=== PATIENT | male | born 1995 | race Caucasian/White ===

== ENCOUNTER → 2017-11-19 | Outpatient (CLI) | payer OTHER ==
[~2017-11-19] MED LIST: IOHEXOL 180 MG/ML 10 ML VIAL.; methylPREDNISolone ACETATE 40 MG/ML VIAL.; methylPREDNISolone ACETATE 80 MG/ML VIAL.
== END ==
LOC: PNCL 09:27
DX: M51.16 Intervertebral disc disorders with radiculopathy, lumbar region (principal); Z72.89 Other problems related to lifestyle; Z91.018 Allergy to other foods; Z90.49 Acquired absence of other specified parts of digestive tract; Z98.890 Other specified postprocedural states
CPT/HCPCS: 62323; J1030; J1040; Q9965

== ENCOUNTER → 2017-12-09 | Outpatient (CLI) | payer OTHER | END | disposition home or self-care (01) | LOC: PNCL 08:58 | DX: M51.16 Intervertebral disc disorders with radiculopathy, lumbar region (principal) | CPT/HCPCS: 99212 ==

== ENCOUNTER → 2017-12-23 | Outpatient (CLI) | payer OTHER ==
[~2017-12-23] MED LIST changes: +LIDOCAINE 1% PF 2 ML VIAL.
== END | disposition home or self-care (01) ==
LOC: PNCL 09:24
DX: M51.16 Intervertebral disc disorders with radiculopathy, lumbar region (principal); Z91.018 Allergy to other foods
CPT/HCPCS: 62323; J1030; J1040; Q9965

== ENCOUNTER → 2018-01-27 | Outpatient (CLI) | payer OTHER | END | disposition home or self-care (01) | LOC: PNCL 10:04 | DX: M51.16 Intervertebral disc disorders with radiculopathy, lumbar region (principal) | CPT/HCPCS: 99212 ==

== ENCOUNTER → 2018-02-10 | Outpatient (CLI) | payer OTHER | END | disposition home or self-care (01) | LOC: PNCL 07:56 | DX: M51.16 Intervertebral disc disorders with radiculopathy, lumbar region (principal); Z91.018 Allergy to other foods | CPT/HCPCS: 62323; J1030; J1040; Q9965 ==

== ENCOUNTER → 2018-02-27 | Outpatient (CLI) | payer OTHER | END | disposition home or self-care (01) | LOC: PNCL 10:37 | DX: M51.16 Intervertebral disc disorders with radiculopathy, lumbar region (principal); Z90.49 Acquired absence of other specified parts of digestive tract | CPT/HCPCS: 99212 ==

== ENCOUNTER → 2018-05-05 | Outpatient (CLI) | payer OTHER ==
[~2018-05-05] MED LIST changes: +DOCU-109 PO; +HYDR-971 PO; -IOHEXOL 180 MG/ML 10 ML VIAL.; -LIDOCAINE 1% PF 2 ML VIAL.; +MELO15TA23 PO; +METH-38 PO; +[UNRECOGNIZED DRUG - REMARK]; -methylPREDNISolone ACETATE 40 MG/ML VIAL.; -methylPREDNISolone ACETATE 80 MG/ML VIAL.
[2018-05-05 13:09] LABS: BASO % 1 % (0-3); EOS # 0.1 x10^3/uL (0.0-0.7); EOS % 2 % (0-3); HEMATOCRIT 45.4 % (39.0-53.0); HEMOGLOBIN 15.9 g/dL (13.0-17.5); LYMPH # 2.7 x10^3/uL (1.0-4.8); LYMPH % 38 % (24-48); MEAN CORPUSCULAR HEMOGLOBIN 30 pg (25-35); MEAN CORPUSCULAR HGB CONC 35 g/dL (31-37); MEAN CORPUSCULAR VOLUME 86 fL (79-100); MONO # 0.6 x10^3/uL (0.0-1.1); MONO % 8 % (0-9); NEUT # 3.6 x10^3uL (1.8-7.7); NEUT % 51 % (31-73); PLATELET COUNT 384 x10^3/uL (140-400); RED BLOOD COUNT 5.28 x10^6/uL (4.30-5.70); RED CELL DISTRIBUTION WIDTH 13.3 % (11.5-14.5)
[2018-05-05 13:27] LABS: ALBUMIN 4.4 g/dL (3.4-5.0); ALBUMIN/GLOBULIN RATIO 1.3 (1.0-1.7); CALCIUM 9.4 mg/dL (8.5-10.1); GFR 91.8; POTASSIUM 3.7 mmol/L (3.5-5.1); TOTAL BILIRUBIN 0.8 mg/dL (0.2-1.0); TOTAL PROTEIN 7.9 g/dL (6.4-8.2)
== END | disposition home or self-care (01) ==
LOC: SURGPAT 12:00
PROVIDERS: ATTEND Neurological Surgery
DX: Z01.818 Encounter for other preprocedural examination (principal); M51.16 Intervertebral disc disorders with radiculopathy, lumbar region
CPT/HCPCS: 36415; 80053; 85025; 87641

== ENCOUNTER 2018-05-11 06:58 | Day surgery (SDC) | payer OTHER ==
--- NOTE | 2018-05-08 15:28 | PREOP HP ---
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 He was injured 07/29/2017. He developed left much more than right hip, lateral thigh and leg pain. He feels as though there is weakness in his left leg. When I saw him for the first time in 11/2017, I recommended lumbar epidural steroid injections. He said after 2 injections, he returned to work for a couple of weeks, but that his back became very painful and his leg pain returned; therefore, he stopped working. Currently, he is not working. Any lifting or walking increase his lower extremity pain. Sitting helps. PAST MEDICAL HISTORY: None noted. PAST SURGICAL HISTORY: Tonsillectomy 1995, appendectomy in 2013, wisdom tooth removal in 2016. FAMILY HISTORY: Cancer, diabetes, hypertension, [place] at an early age. SOCIAL HISTORY: Employed by [employer]. . Exercises monthly. Denies substance abuse. Denies tobacco use currently. Drinks alcohol 1-2 times per month. Drinks soda daily. ALLERGIES: No known drug allergies. CURRENT MEDICATIONS: None. REVIEW OF SYSTEMS: A 12-point review of systems was obtained and is noncontributory except for that mentioned above. PHYSICAL EXAMINATION: NEUROSURGERY EXAMINATION: GENERAL APPEARANCE: Alert, pleasant, no acute distress. HEAD: Normocephalic, atraumatic. SKIN: Warm and dry. MUSCULOSKELETAL: Lumbar paraspinal muscle bulk is normal, restricted range of motion of lumbar spine, [id number] tenderness of the lower lumbar spine with palpation, normal range of motion of the lower extremities bilaterally. EXTREMITIES: No clubbing, cyanosis or edema. NEUROLOGIC: Alert and oriented x 3, recent and remote memory, strength 5/5 in bilateral lower extremities, sensory was intact to light touch in the lower extremities bilaterally except for a decrease in the dorsum and dorsolateral surface of his left foot. Reflexes were 1+ and symmetric in bilateral lower extremities, negative straight leg raising bilaterally, normal gait. IMAGING: I reviewed a lumbar MRI scan from 09/2017. On that study, there is a small disc protrusion at L5-S1. At L4-L5, there is a much larger focal disc protrusion, which is centrally and slightly left-sided with narrowing of the left lateral recess. ASSESSMENT/PLAN: I believe the majority of his pain is related to the disc protrusion L4-L5. He has predominantly left lumbar radiculopathy. My recommendation at this point is to operate on the left side and perform a micro hemilaminotomy with microdiscectomy at this level to see if this one help him. I did discuss the surgery with him in detail. I explained the risks of recurrence. He understands the surgery as well as the risks involved with lumbar microsurgery and he would like to go ahead. We will make the arrangements. AYAAN SARMIENTO MD DR: LINUS/neftali JOB#: [id number] / [id number] [facility]
[~2018-05-11] VITALS: Ht 180.3 cm; Wt 80.3 kg
[~2018-05-11 06:58] MED LIST changes: +BACITRACIN 50,000 UNIT in IV NORMAL SALINE 1000ML BAG 1,000 ML IRR ONE; -DOCU-109 PO; +GELATIN SPONGE SIZE 100. ONE; -HYDR-971 PO; +KETOROLAC 60 MG/2 ML INJ FOR OR. ONE; -METH-38 PO; +THROMBIN TOPICAL 20,000 UNIT SPRAY.SYRN KIT TP ONE
[2018-05-11] MEDS ORDERED: LIDOCAINE 1% PF 2 ML VIAL. ID PRN (07:00)
[2018-05-11] MEDS ORDERED: fentaNYL PF VIAL 100 MCG/2 ML VIAL IV PRN (07:00)
[2018-05-11] MEDS ORDERED: ONDANSETRON PF 4 MG/2 ML VIAL. IV PRN (07:00)
[2018-05-11] MEDS ORDERED: IV RINGERS,LACTATED 1000ML 1,000 ML IV SCH (07:00)
[2018-05-11] MEDS ORDERED: HYDROmorphone 2 MG/ML VIAL IV PRN (07:00)
[2018-05-11] MEDS ORDERED: MORPHINE SULFATE 2 MG/ML VIAL. IV PRN (07:00)
[2018-05-11] MEDS ORDERED: BUPIVAC MPF-EPI 0.5%-1:200000 30 ML VIAL. INJ ONE (08:00)
[2018-05-11] MEDS ORDERED: MIDAZOLAM HCL/PF 2 MG/2 ML VIAL. ONE (08:16)
[2018-05-11] MEDS ORDERED: REMIFENTANIL 1 MG VIAL. IV ONE ×2 (08:16→09:42)
[2018-05-11] MEDS ORDERED: ROCURONIUM 50 MG/5 ML VIAL. ONE (08:16)
[2018-05-11] MEDS ORDERED: KETOROLAC 30 MG/ML INJ FOR OR. INJ ONE (08:17)
[2018-05-11] MEDS ORDERED: PROPOFOL 20 ML IV ONE (08:17)
[2018-05-11] MEDS ORDERED: ONDANSETRON PF 4 MG/2 ML VIAL. ONE (08:17)
[2018-05-11] MEDS ORDERED: DESFLURANE 61 TO 120 MINUTES IH ONE (08:17)
[2018-05-11] MEDS ORDERED: PROPOFOL 50 ML IV ONE ×2 (08:17→09:34)
[2018-05-11] MEDS ORDERED: DEXAMETHASONE SOD PHOS 20 MG/5 ML VIAL. ONE (08:17)
[2018-05-11] MEDS ORDERED: GLYCOPYRROLATE 1 MG/5 ML VIAL. ONE (08:17)
[2018-05-11] MEDS ORDERED: 0.9 % SODIUM CHLORIDE 20 ML VIAL. IJ ONE (08:18)
[2018-05-11] MEDS ORDERED: HYDR-971 PO (11:02)
[2018-05-11] MEDS ORDERED: DOCU-109 PO (11:02)
[2018-05-11] MEDS ORDERED: METH-38 PO (11:02)
[2018-05-11] MEDS: fentaNYL PF VIAL 100 MCG/2 ML VIAL IV PRN ×2 (11:03→11:19)
[2018-05-11] MEDS: PROCHLORPERAZINE 10 MG/2 ML VIAL. IV PRN ×2 (11:03→11:19)
--- NOTE | 2018-05-11 11:09 | DISCH ---
DISCHARGE INSTRUCTIONS Condition on Discharge Condition on Discharge: Stable Activity After Discharge Activity Instructions for Disc: Activity as tolerated, Avoid exertion Other activity instructions: no driving for a week Bathing Instructions: Shower-keep dressing dry Lifting Instructions after Dis: No heavy lifting, No pulling or pushing, Do not lift >10 pounds Diet after Discharge Additional Diet Restrictions: resume home diet Wound Incision Care Wound/Incision Care: Ice to area for comfort Other wound/incision instructi: may remove dressing in 48 hours if dry then may shower- no soaking Contacting the after DC Call your doctor for: Concerns you may have Follow-Up Follow up with: Dr. Sarmiento's nurse in 2 weeks [phone] AYAAN SARMIENTO MD May 11, 2018 11:09
[2018-05-11] MEDS ORDERED: HYDROcodone/APAP 5/325MG 1 TAB TABLET PO ONE (11:30)
[2018-05-11 12:40] VITALS: BP 108/50
--- NOTE | 2018-05-11 12:41 | OP ---
DATE OF SURGERY: 05/11/2018 PREOPERATIVE DIAGNOSIS: Herniated lumbar disc at L4-L5 on the left. POSTOPERATIVE DIAGNOSIS: Herniated lumbar disc at L4-L5 on the left. OPERATION PERFORMED: Hemilaminotomy and microdiscectomy, L4-L5 on the left. The operation was done with EMG monitoring, fluoroscopy, microscopic dissection as well as SSEP monitoring. SURGEON: Yanick Sarmiento M.D. PURCHASER: LUCY Perez assisted with the exposure, the microdiscectomy as well as the closure. OPERATIVE INDICATIONS: The patient is a pleasant 22-year-old who developed intractable back and left leg pain, which failed conservative measures. On imaging studies, he had bulging disc at L4-L5, which was central and left sided and I recommended lumbar microsurgery. I spoke about the surgery, the risks, technique and expected postoperative course and he wished to go ahead. DESCRIPTION OF PROCEDURE: Following general endotracheal anesthesia, the patient was positioned prone on the Jeff frame. His lumbar region was prepped and draped in the standard fashion. PEYTON hose and AV impulse boots were applied for DVT prophylaxis. The microscope was draped. Fluoroscopy was draped and brought into field. Monitoring was established. Ancef 2 grams were given less than 1 hour prior to initiation of the surgery. Using fluoroscopic guidance, a midline incision was made over the L4-L5 interspace. I dissected down to the skin and subcutaneous tissue and reflected the paraspinal muscles and placed a [place] micro disc retractor. I brought in the microscope and using the high-speed air drill and microscopic technique, I burred down a very generous hemilaminotomy and then trimmed away very thickened ligamentum flavum, performing also partial foraminotomy by thinning the bone with a high-speed air drill and then trimming further with 2 and 2.5 mm peeling Kerrisons. I gently retracted that immediately. There were a number of large epidural veins which were tethering the nerve posterolaterally and I coagulated and incised the vein complex with microscissors, which allowed me to gently retract the root medially. There was a large bulging disc beneath the root, which was quite soft and lifting the root and I incised the annulus and ligament and I worked diligently and performed a discectomy with pituitary rongeurs. As I worked, the hump decreased the amount of pressure on the nerve root and the nerve became very well decompressed as well as the dura. I irrigated copiously with antibiotic solution. I explored carefully. There were no retained fragments. I performed a very generous discectomy and fully decompressed nerve root. I was quite pleased. I irrigated copiously and I removed the retractor, obtained hemostasis in the muscle. Hemostasis was excellent throughout the entire case. I irrigated, closed the wound in layers with absorbable suture. The skin was closed with 4-0 subcuticular stitch. The operation went very well. I was quite pleased with the surgery. YANICK SARMIENTO MD DR: LINUS/neftali JOB#: [id number] / [id number] [facility]
--- NOTE | 2018-05-12 17:09 | PATHOLOGY ---
[facility] Accession Number: [id number] . 01 Material submitted: . LUMBAR DISC . 01 Clinician provided ICD-10: M51.26 M54.16 . 01 Clinical history: . Herniated disc with radiculopathy . 02 Diagnosis: Segments of fibrocartilaginous, fibroadipose, and skeletal muscle tissue and bone, lumbar disc: - Degenerative changes of fibrocartilaginous tissue. . (JPM/at;05/12/2018) QTA/05/12/2018 . 02 Comment: There is no evidence of an acute inflammatory process or malignancy. . 02 Electronically signed: . John Pascual MD, Pathologist NPI- [id number] . 01 Gross description: . The specimen is received in formalin, labeled "Kilo [place], lumbar disc", are multiple irregular fragments of soto-white rubbery, fibrous soft tissues admixed with possible bone fragments measuring 3.0 x 2.6 x 1.0 cm in aggregate. 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 ([facility]; 05/11/2018) SHS/SHS . 02 Pathologist provided ICD-10: M51.36 . 02 CPT . 153078, [id number] Specimen Comment: A courtesy copy of this report has been sent to Specimen Comment: [phone]. Specimen Comment: Report sent to Performed at: 01 [facility] [address], [place] [id number] MD Avinash Murphy MD Phone: [phone] Performed at: 02 [facility] [address] [place], [place] [id number] MD John Pascual MD Phone: [phone]
== END 2018-05-11 12:40 | disposition home or self-care (01) ==
LOC: SURG 06:58
PROVIDERS: ATTEND Neurological Surgery
DX: M51.16 Intervertebral disc disorders with radiculopathy, lumbar region (principal); Z91.018 Allergy to other foods; K08.409 Partial loss of teeth, unspecified cause, unspecified class; Z90.49 Acquired absence of other specified parts of digestive tract; Z98.890 Other specified postprocedural states; Z83.3 Family history of diabetes mellitus; Z82.49 Family history of ischemic heart disease and other diseases of the circulatory system; Z72.89 Other problems related to lifestyle
CPT/HCPCS: 63030; 97162; 97530; A7015; G8978; G8979; G8980; J0690; J0780; J1100; J1885; J2250; J2405; J2704; J3010; J3490; J7030; 76000